=== PATIENT | female | born 1985 | race Hispanic/Latino ===

== ENCOUNTER 2018-11-01 08:37 | Emergency (ER) | payer OTHER ==
[2018-11-01 08:43] VITALS: RESP 18; BMI 19.8
--- NOTE | 2018-11-01 09:02 | ED PDOC ---
HPI: Female Pain Time Seen by Provider: 11/01/18 08:50 Chief Complaint (Provider): Vaginal Bleeding History Per: Patient History/Exam Limitations: no limitations Onset/Duration Of Symptoms: Days (x10) Current Symptoms Are (Timing): Still Present Additional Complaint(s): 33 y/o female with no significant PMHx who presents to the ED for evaluation of vaginal bleeding, beginning 10 days ago. Patient reports being approximately 5 weeks and having developed vaginal bleeding associated with mild pelvic cramping. Per patient, the vaginal bleeding has become heavier thus prompting today's visit. She denies nausea, vomiting, diarrhea, back pain, and dysuria. Of note, patient is not taking medications and has not been seen by [facility]. Patient notes of having an appointment next month. Abnormal Vaginal Bleeding: Yes Past Medical History Reviewed: Historical Data, Nursing Documentation, Vital Signs Vital Signs: Last Vital Signs Temp 97.8 F 11/01/18 08:42 Pulse 86 11/01/18 08:42 Resp 18 11/01/18 08:42 BP 130/79 11/01/18 08:42 Pulse Ox 98 11/01/18 08:42 - Medical History PMH: No Chronic Diseases - Surgical History Surgical History: No Surg Hx - Family History Family History: States: No Known Family Hx - Allergies Allergies/Adverse Reactions: Allergies Allergy/AdvReac Type Severity Reaction Status Date / Time No Known Allergies Allergy Verified 11/01/18 08:57 Review of Systems ROS Statement: Except As Marked, All Systems Reviewed And Found Negative Genitourinary Female: Positive for: Vaginal Bleeding, Pelvic Pain (across lower) Physical Exam - Reviewed Nursing Documentation Reviewed: Yes Vital Signs Reviewed: Yes - Physical Exam Appears: Positive for: Well, Non-toxic, No Acute Distress Head Exam: Positive for: ATRAUMATIC, NORMOCEPHALIC Skin: Positive for: Normal Color, Warm, Dry Eye Exam: Positive for: Normal appearance, EOMI, PERRL Neck: Positive for: Normal, Painless ROM Cardiovascular/Chest: Positive for: Regular Rate, Rhythm. Negative for: Murmur Respiratory: Positive for: Normal Breath Sounds. Negative for: Respiratory Distress Gastrointestinal/Abdominal: Positive for: Normal Exam, Soft. Negative for: Tenderness Pelvic Exam: Positive for: External Exam Normal, No Cerv. Motion Tender, Blood (dark blood noted in vault), Other (No labial tenderness, no cervival tenderness). Negative for: Discharge Back: Positive for: Normal Inspection. Negative for: L CVA Tenderness, R CVA Tenderness Extremity: Positive for: Normal ROM. Negative for: Deformity Neurological/Psych: Positive for: Awake, Alert, Oriented (x3). Negative for: Motor/Sensory Deficits - Laboratory Results Result Diagrams: 11/01/18 09:05 11/01/18 09:05 Interpretation Of Abn Labs: bhcg pos - ECG O2 Sat by Pulse Oximetry: 98 (RA) Pulse Ox Interpretation: Normal - CT Scan/US US Other Rad Studies (CT/US): Radiology Report Reviewed Other Rad Interpretation: no IUP - Progress ED Course And Treament: 1242: Stable. AAOx3. Pain free. Concern for miscarriage vs. ectopic vs. early . Pt. to return in 3 days for repeat blood work and US. Pt. aware to return right away if any pain, weakness, dizziness, increased bleeding, or not feeling right. BHCG not at discriminatory level. Medical Decision Making Medical Decision Making: Time: 0900 Impression: Vaginal bleeding in setting of Plan: --ABO/RH Type --Type and Screen --Beta-HCG, Quantitative --CMP -- and Urine Dipstick --CBC with differential --OB Transvaginal US Scribe Attestation: Documented by Prerna Neal, acting as a scribe Elsie Hdz MD. Provider Scribe Attestation: All medical record entries made by the Scribe were at my direction and personally dictated by me. I have reviewed the chart and agree that the record accurately reflects my personal performance of the history, physical exam, medical decision making, and the department course for this patient. I have also personally directed, reviewed, and agree with the discharge instructions and disposition. Disposition - Clinical Impression Clinical Impression: Bleeding in early - Patient ED Disposition Is Patient to be Admitted: No Counseled Patient/Family Regarding: Studies Performed, Diagnosis, Need For Followup - Disposition [facility] - [facility] Disposition: Routine/Home Disposition Time: 12:45 Condition: STABLE Additional Instructions: The ultrasound does not show a in the uterus. It could be an early , miscarraige, or an ectopic . Please return in 3 days or see your obgyn in 3 days for repeat blood work and ultrasound. If any pain, weakness, dizziness, increased bleeding, or not feeling right, come right back. Instructions: Bleeding With Forms: [facility] ([place]), [facility] ED School/Work Excuse
[2018-11-01 09:17] LABS: BASO # 0.1 K/uL (0.0-0.2); BASO % 1.2 % (0.0-2.0); EOS # 0.1 K/uL (0.0-0.7); EOS % 1.5 % (0.0-4.0); HEMOGLOBIN 13.1 g/dL (12.0-16.0); LYMPH # 1.5 K/uL (1.0-4.3); LYMPH % 28.3 % (20.0-40.0); MEAN CELL VOLUME 89.9 fl (81.0-99.0); MEAN CORPUSCULAR HEMOGLOBIN 30.3 pg (27.0-31.0); MEAN CORPUSCULAR HGB CONC 33.7 g/dL (33.0-37.0); MEAN PLATELET VOLUME 8.3 fl (7.2-11.7); MONO # 0.4 K/uL (0.0-0.8); MONO % 7.1 % (0.0-10.0); NEUT # 3.2 K/uL (1.8-7.0); NEUT % 61.9 % (50.0-75.0); RBC 4.33 Mil/uL (3.80-5.20); RED CELL DISTRIBUTION WIDTH 12.7 % (11.5-14.5); WHITE BLOOD COUNT 5.2 K/uL (4.8-10.8)
[2018-11-01 09:37] LABS: ALB/GLOB RATIO 1.7 (1.0-2.1); ALBUMIN 4.6 g/dL (3.5-5.0); ALT/SGPT 28 U/L (9-52); AST/SGOT 28 U/L (14-36); BLOOD UREA NITROGEN 9 mg/dl (7-17); CALCIUM 9.4 mg/dL (8.4-10.2); GFR NON-AFRICAN AMERICAN > 60
--- NOTE | 2018-11-01 12:56 | US ---
Date of service: 11/01/2018 HISTORY: preg and pain COMPARISON: None available. TECHNIQUE: Transvaginal FINDINGS: UTERUS: Measures 6.5 x 4.6 x 3.6 cm. Normal in size and appearance. No fibroid or other mass lesion seen. ENDOMETRIUM: Measures 11 mm in diameter. Mildly heterogeneous. No endometrial fluid appreciated. No hypervascularity. CERVIX: No cervical abnormality identified. RIGHT OVARY: Measures 3.0 x 3.2 x 1.7 cm. Complex right ovarian cyst, 1.3 x 1.6 x 1.8 cm, with intermediate level internal echoes. Possible hemorrhagic cyst. Follow-up with transvaginal pelvic ultrasound examination is advised in 8-12 weeks. Normal flow. LEFT OVARY: Measures 2.1 x 2.6 x 1.9 cm. No solid mass. Normal flow. FREE FLUID: No significant free fluid noted. OTHER FINDINGS: None. IMPRESSION: Complex right ovarian cyst, 1.8 cm. Recommend follow-up transvaginal pelvic ultrasound examination in 8-12 weeks. No intrauterine gestation identified. Please correlate with beta HCG. Cannot exclude ectopic on the basis of this examination in the absence of an intrauterine gestation.
[2018-11-01 13:47] VITALS: BP 126/74; PULSE 80; TEMP 98; O2SAT 99
== END 2018-11-01 13:29 | disposition home or self-care (01) ==
LOC: H.ER 08:37
DX: O20.9 Hemorrhage in early pregnancy, unspecified (principal); Z3A.01 Less than 8 weeks gestation of pregnancy